=== PATIENT | female | born 1945 | race Caucasian/White ===

== ENCOUNTER 2021-04-12 12:19 | Day surgery (SDC) | payer MEDICARE ==
[2021-04-12] MEDS ORDERED: LOPRESSOR 550 MG/TAB PO (12:44)
[2021-04-12] MEDS ORDERED: GLUCOPHAGE1000 MG PO (12:45)
[2021-04-12] MEDS ORDERED: NEURONTIN300 MG/CAP PO (12:46)
[2021-04-12 14:07] VITALS: BP 102/57; PULSE 76; TEMP 97.2
[2021-04-12 16:00] VITALS: BP 124/53; PULSE 80; TEMP 98
--- NOTE | 2021-04-12 16:00 | NUR ---
Report obtained over the phone from JERZY Boo. JERZY Alexander transferred patient from the PACU to her private bay #4. Patient is alert and oriented x3. She requested cranberry juice and a chocolate muffin. Vitals obtained. Patient was assisted repositioning. Per report: 700ml urine in catheter. Call vazquez is in the patients lap. Side rails x2.
[2021-04-12 16:15] VITALS: BP 120/80; PULSE 73
--- NOTE | 2021-04-12 16:15 | NUR ---
Patient is tolerating her warm chocolate muffin and cranberry juice well. Vitals obatined. Call vazquez is on her lap. Side rails x2
[2021-04-12 16:30] VITALS: BP 125/60; PULSE 69
--- NOTE | 2021-04-12 16:30 | NUR ---
Patient stated desire to be discharged. Her son is downstairs at the patient entrence. Vitals obtained.
--- NOTE | 2021-04-12 16:40 | NUR ---
IV discontinued at this time due to impending discharge. Catheter tip intact. Pressure dressing applied. Patient denied pain/discomfort. No swelling or redness noted. Discharge instructions were reviewed, along with educational material. Patient verbalized understanding of the material and signed the related paperwork.
--- NOTE | 2021-04-12 17:00 | NUR ---
Patient was assisted into her personal clothes by Marilynn BERTRAND, Madina RN and Catherine BERTRAND. Patient stated she did not want to wear her bra. Patient instructed us on how she wanted us to proceed. Catheter bag was threaded through her pant leg. Patient did not want to wear a Depends. Patient then instructed us on how to move her to the chair from the bed. JERZY Gardner had to assist with this transition. Patient was lifted and moved to the chair and repositioned. Patient was very thankful. Patient was walked out to the patient entrence by JERZY Gardner who is carrying the discharge information packet along with supplies: two 1000ml cummins bags, one leg bag, six packs of gauze, and alcohol wipes. Patient was transferred into the care of her son Jorge who is present to drive the patient home.
[2021-04-12 19:04] VITALS: BP 129/62; PULSE 83; TEMP 98.8
== END 2021-04-12 17:00 | disposition home or self-care (01) ==
LOC: SDCO 12:19
DX: N31.9 Neuromuscular dysfunction of bladder, unspecified (principal); R33.8 Other retention of urine; G82.50 Quadriplegia, unspecified; I11.0 Hypertensive heart disease with heart failure; I50.9 Heart failure, unspecified; I48.91 Unspecified atrial fibrillation; E11.42 Type 2 diabetes mellitus with diabetic polyneuropathy; M48.00 Spinal stenosis, site unspecified; M46.1 Sacroiliitis, not elsewhere classified; F32.A Depression, unspecified; F41.9 Anxiety disorder, unspecified; E78.5 Hyperlipidemia, unspecified; Z79.899 Other long term (current) drug therapy; Z99.3 Dependence on wheelchair
CPT/HCPCS: J0690; J1100; J2405; J2704; J3010; J7120